=== PATIENT | female | born 1990 | race Caucasian/White ===

== ENCOUNTER 2017-01-22 20:25 | Inpatient (IN) | payer BC ==
[~2017-01-22] VITALS: Ht 160 cm; Wt 110.9 kg
--- NOTE | ~2017-01-22 | DS ---
PATIENT'S NAME: CURT EASTMAN [facility] AGE: 26 Y [address] ROOM: [address] [address] LOCATION: [facility] ADMIT DATE: 01/22/2017 Discharge Summary DISCHARGE DATE: 01/25/2017 FAMILY PHYSICIAN: NAHOMY JACINTO ATTENDING PHYSICIAN: Tawanna Chen FINAL DIAGNOSES: 1. Intrauterine at 38 weeks. 2. Severe preeclampsia. 3. Status post primary low transverse section. REASON FOR ADMISSION: This patient is a 26-year-old 1 female, who came here from [place], [place] with what was presumed to be gestational hypertension. HOSPITAL COURSE: The patient was admitted. She was noted to have severe preeclampsia with blood pressures in the 200s/130s and the decision was made for primary low transverse section. Please see her detailed operative report. She delivered a female infant. Apgars were 8 and 9. Postoperatively, the patient did well. Her postoperative hemoglobin was 9.8 from 12.3. She was ambulating well and urinating without difficulty. Her blood pressures were well controlled on Procardia, and she was discharged home on postoperative day #3. DISCHARGE MEDICATIONS: Please see her discharge medication list. DISCHARGE INSTRUCTIONS: The patient was given routine section instructions, and I will see her back in 2 weeks for an incision check. MD COSME GALVAN/yvrose /[id number] d: 02/02/17 0836 t: 02/05/17 0952, DISCHARGE SUMMARY
--- NOTE | ~2017-01-22 | HP ---
PATIENT'S NAME: CURT EASTMAN [facility] AGE: 26 Y [address] ROOM: [place] [address] LOCATION: GO ADMIT DATE: 01/22/2017 History & Physical DISCHARGE DATE: FAMILY PHYSICIAN: PHYSICIAN, NO ATTENDING PHYSICIAN: Tawanna Chen DATE OF SERVICE: CHIEF COMPLAINT: Preeclampsia. HISTORY OF PRESENT ILLNESS: This is a 26-year-old 1, para 0 female, at 38 weeks and 0 days' gestation by first-trimester ultrasound. She is a patient from [place], [place]. I was contacted today by Dr. Santos regarding her blood pressure. She apparently had elevated blood pressures last week with blood pressures in the 140s over 90s. They started her on atenolol. Today, she came to the office for nonstress test and blood pressures were 140s over 90s, but then she did have a couple of 160/100. CBC and CMS were normal at that time. A 24- hour urine last week was 10 mg. She has not had any headaches or changes in vision or right upper quadrant pain. She has had good movement. She has had occasional contractions. She has had no leakage of fluid and no vaginal bleeding. PAST MEDICAL HISTORY: No chronic medical problems. PAST SURGICAL HISTORY: Tonsils and wisdom teeth. OB HISTORY: She is 1, blood type B positive, antibody screen negative, RPR negative, hepatitis B serum antigen negative. Rubella immune. Group B strep positive. Penicillin allergy but no sensitivities were done. On ultrasound yesterday, estimated weight is 3138 g. Baby was cephalic. BRONSON was 28 cm. One-hour Glucola was 150. The patient states she did not do her 3-hour because she ate a good breakfast that morning, and they did not feel that she needs to do a 3-hour. MEDICATIONS: Atenolol. ALLERGIES: PENICILLIN AND SHRIMP. PATIENT'S NAME: CURT EASTMAN [facility] AGE: 26 Y [address] ROOM: [address] [address] LOCATION: GO ADMIT DATE: 01/22/2017 History & Physical DISCHARGE DATE: FAMILY PHYSICIAN: PHYSICIAN, NO ATTENDING PHYSICIAN: Tawanna Chen SOCIAL HISTORY: The patient is a smoker. She is . She does not use street drugs or alcohol. FAMILY HISTORY: Noncontributory. REVIEW OF SYSTEMS: As per HPI. All other systems are reviewed and negative. PHYSICAL EXAMINATION: VITAL SIGNS: Blood pressures 193/108, 202/130, 198/105; afebrile; pulse 88. GENERAL: She is alert and oriented. HEART: Regular rate and rhythm. LUNGS: Clear to auscultation. ABDOMEN: Gravid. Soft, nontender, and nondistended. EXTREMITIES: 2+ DTRs, 2+ edema. PELVIC: Cervix is fingertip, thick, and high. Unable to feel presenting part. Cephalic on ultrasound. IMPRESSION: 1. Intrauterine at 38 weeks. 2. Atypical preeclampsia with severe range of blood pressures. PLAN: Treat her blood pressures and do primary low transverse section. She is remote from delivery and in a dangerous range of blood pressures. The risks, benefits, and alternatives to the procedure were discussed with the patient. She understands risk to be, but not to be limited to bleeding, infection, damage to the bowel, bladder, ureter, and surrounding organs and desired to proceed. MD COSME GALVAN/yvrose /[id number] D: T: 651 HISTORY & PHYSICAL
--- NOTE | ~2017-01-22 | OR ---
PATIENT'S NAME: CURT EASTMAN [facility] AGE: 26 Y [address] ROOM: [place] [address] LOCATION: GOBS ADMIT DATE: 01/22/2017 OR/Procedure Report DISCHARGE DATE: 01/25/2017 FAMILY PHYSICIAN: PHYSICIAN, NO ATTENDING PHYSICIAN: Tawanna Chen SURGEON: Tawanna Chen MD PHYSICIAN OBSTETRICIAN: DATE OF PROCEDURE: 01/22/2017 PREOPERATIVE DIAGNOSES: 1. Intrauterine at 38 weeks. 2. Severe preeclampsia with severe range pressures, remote from delivery. POSTOPERATIVE DIAGNOSES: 1. Intrauterine at 38 weeks. 2. Severe preeclampsia with severe range pressures, remote from delivery. PROCEDURE: Primary low transverse section. PHYSICIAN OBSTETRICIAN SURGEON: Felicita Rea MD. Dr. Rea was necessary for adequate visualization of tissues and delivery of the fetus. ANESTHESIA: GETA. FINDINGS: Female infant, score 8 and 9, weight is pending. Normal uterus, tubes, and ovaries. ESTIMATED BLOOD LOSS: 500 mL. DRAINS: None. SPECIMENS: Placenta. COMPLICATIONS: None. INDICATIONS: This patient is a 26-year-old 1 female who came from [place], [place], after she had seen Dr. Santos today due to just what was presumed to be gestational hypertension. I was told over the phone that her blood pressures were about 140s/90s. She was asymptomatic and her labs were normal. When she arrived here, her blood pressures were in the 190s/100s and she had even some blood pressures up in the 200s/130s and the decision was made for urgent delivery. The risks, benefits, and alternatives to the procedure were discussed with the patient. She understands the risk to be, but not to be limited to, bleeding, infection, damage to the bowel, bladder, ureter, and surrounding organs and desired to proceed. [facility] 26 Y [address] ROOM: [place] [address] LOCATION: [facility] ADMIT DATE: 01/22/2017 OR/Procedure Report DISCHARGE DATE: 01/25/2017 FAMILY PHYSICIAN: PHYSICIAN, NO ATTENDING PHYSICIAN: Tawanna Chen DESCRIPTION OF PROCEDURE: The patient was taken to the operating room, anesthesia was found to be adequate. She was prepped and draped in dorsal supine position with a leftward tilt. A Pfannenstiel skin incision was made and carried down through to the fascia. The fascia was incised across the midline and the fascial incision was extended. The rectus muscles were . The peritoneum was entered. The bladder blade was inserted. The uterus was incised in a low transverse fashion with the scalpel. The uterine incision was extended with vertical traction. Surgeon's hand was inserted into the uterus. head delivered. The rest of the fetus delivered. The nose and mouth were bulb suctioned. Cord was clamped and cut. The was handed to awaiting team. Cord blood was drawn. The placenta delivered with manual traction. Uterus was exteriorized and cleared of clots and debris. It was repaired with 0 Vicryl in running lock fashion. Uterus was returned to the abdomen, and the gutters were cleared of clots and debris. The uterus was again noted to be hemostatic. The fascia was repaired with 0 Vicryl in a running fashion. Subcutaneous adipose tissue was reapproximated with 2-0 Vicryl suture. The skin was closed with 4-0 Vicryl suture. COMPLICATIONS: None. CONDITION: Mom stable in room. to nursery. MD COSME GALVAN/yvrose /[id number] d: 01/26/17 0710 t: 02/02/17 0732, OPERATIVE SUMMARY
[2017-01-22 21:05] LABS: BASOPHIL % 0.2 %; EOSINOPHIL # 0.1 K/uL (0.0-0.5); EOSINOPHIL % 0.9 %; HEMATOCRIT 38.7 % (33.0-46.0); HEMOGLOBIN 12.3 g/dL (11.0-15.0); IMMATURE GRANULOCYTE # 0.1 K/uL (0.0-0.3); IMMATURE GRANULOCYTE % 0.8 %; LYMPHOCYTE # 2.6 K/uL (0.8-4.0); LYMPHOCYTE % 20.2 %; MCH 26.2 pg (27.0-34.0); MCHC 31.8 gm/dL (32.0-36.5); MCV 82.3 fl (83.0-98.0); MONOCYTE # 0.7 K/uL (0.0-1.0); MONOCYTE % 5.3 %; MPV 13.6 fl (9.4-12.4); NEUTROPHIL # (ANC) 9.5 K/uL (1.8-7.8); NEUTROPHIL % 72.6 %; NRBC % 0 /100WBC (0-0.00); PLATELET COUNT 195 K/uL (150-450); RDW-CV 14.5 % (11.9-14.6); WBC 13.1 K/uL (4.0-11.0)
[2017-01-22 21:22] LABS: ALBUMIN 2.6 gm/dL (3.5-5.0); ALK PHOS 207 IU/L (33-138); ALT 13 IU/L (12-78); ANION GAP 13.8 (10.0-19.0); AST 15 IU/L (10-40); BLOOD UREA NITROGEN 14 mg/dL (6-24); CALCIUM 8.4 mg/dL (8.5-10.5); CHLORIDE 108 mMol/L (96-110); CO2 22 mMol/L (22-32); CREATININE 0.8 mg/dL (0.5-1.1); ESTIMATED GFR (MDRD EQUATION) > 60; POTASSIUM 3.8 mMol/L (3.7-5.1); SODIUM 140 mMol/L (135-145); TOTAL BILIRUBIN 0.2 mg/dL (0.0-1.5); TOTAL PROTEIN 7.4 g/dL (6.0-8.4)
[2017-01-22 21:48] LABS: BARBITURATE NEGATIVE (NEGATIVE); COCAINE NEGATIVE (NEGATIVE); OPIATES NEGATIVE (NEGATIVE)
[2017-01-22 21:49] LABS: AMPHETAMINE NEGATIVE (NEGATIVE)
[2017-01-22 22:05] LABS: BICARBONATE 24.4 mmol/L (18.0-23.0); PCO2 54 mmHg (35-45); PO2 16 mmHg (80-90)
[2017-01-23] MEDS ORDERED: TENORMIN25 MG PO (02:21)
[2017-01-23 05:03] LABS: BASOPHIL % 0.2 %; EOSINOPHIL # 0.1 K/uL (0.0-0.5); EOSINOPHIL % 0.4 %; HEMOGLOBIN 9.8 g/dL (11.0-15.0); IMMATURE GRANULOCYTE # 0.1 K/uL (0.0-0.3); IMMATURE GRANULOCYTE % 0.7 %; LYMPHOCYTE # 3.2 K/uL (0.8-4.0); LYMPHOCYTE % 17.9 %; MCH 26.8 pg (27.0-34.0); MCV 81.6 fl (83.0-98.0); MONOCYTE % 5.4 %; NEUTROPHIL # (ANC) 13.5 K/uL (1.8-7.8); NEUTROPHIL % 75.4 %; NRBC % 0 /100WBC (0-0.00); RBC 3.65 M/uL (3.50-5.00); RDW-CV 14.6 % (11.9-14.6)
[2017-01-23 05:07] LABS: HEMATOCRIT 29.8 % (33.0-46.0); MCHC 32.9 gm/dL (32.0-36.5); PLATELET COUNT 150 K/uL (150-450); WBC 17.9 K/uL (4.0-11.0)
--- NOTE | 2017-01-23 05:31 | NUR ---
Last VS: T:98.4 P:69 R: 14 BP: 130/63 Pain ratin. Last pain med: Percocet Medicated at: perc @ 0230, toradol @ 0430 Effective: Partial relief R Lung sounds: clear L Lung sounds: clear Fundus: firm, midline, 1 below Lochia: small, rubra Breasts: soft Nipples: intact Incision: low, transverse Incision appearance: Microfoam dressing CDI Incision closure: sutures and steristrips Bowel sounds: hypo x 4 quads Passing flatus: no Voiding well: fallon in place Significant event: c/o cough x 1 week, on Procardia XL, 3rd dose of toradol due at 1030, next percocet due @ 0630, Magnesium sulfate infusing at 2 gram/hr order for hydralazine available for elevated BPs. BPs 130-150s/60-90. Bedrest ordered. Neg urine drug screen. Smokes 1/2 pack/day
--- NOTE | 2017-01-23 17:33 | NUR ---
Last VS: T:97.6 P:64 R: 16 BP: 127/65 Pain ratin . Last pain med: Percocet Medicated at:1430 Effective: Partial relief R Lung sounds cl, L Lung sounds: cl Fundus:ff Lochia:small Breasts:soft Nipples:intact.graspable Incision: , Incision appearance: Incision closure: Bowel sounds: hypoactive Passing flatus:no Voiding well: Gandhi-clear yellow. Significant event: N ext percocet @ 1830. Bp's 120's/58/-140's-72. 1 hr outputs 100's-400's. D/c Iv mag @ 2144. Ice bag to dry/intact microfoam dressing.
--- NOTE | 2017-01-24 03:18 | NUR ---
Last VS: T:97.8 P:64 R: 14 BP: 136/76 Pain ratin. Last pain med: Motrin Medicated at: 2330 Effective: Partial relief R Lung sounds: clear L Lung sounds: clear Fundus: firm, midline Lochia: small, rubra Breasts: soft Nipples: intact Incision: low, transverse Incision appearance: edges approximated/open to air Incision closure: sutures Bowel sounds: hypoactive Passing flatus: no Voiding well: voids well on own Significant event: VSS, BP 120-130s/60-70s. Mag off at 2145. DTRs 2-3+, good urine output. Emesis at 2330-25 minutes after percocet given. Needs TDAP and Flu shot--in refrigerator. Needs showered and bed linens changed.
--- NOTE | 2017-01-24 18:00 | NUR ---
Last VS: T:98.1 P:75 R: 16 BP: 146/82 Pain ratin-5 Last pain med: Motrin Medicated at: 4710 Effective: Partial relief R Lung sounds:cl , L Lung sounds: cl Fundus:,ff Lochia: small Breasts: soft Nipples: graspable Incision:approx , Incision appearance: Incision closure: suture only Bowel sounds:hypoactive Passing flatus: yes Voiding well: yes. Significant event: Flu vaccine given. Needs tdap. Bp 130-140'd/60-80's up in halls. Given all purpose nipple ointment.
--- NOTE | 2017-01-25 04:33 | NUR ---
VSS. Fundus firm, even 1 down. Sutures intact. Passing flatus. Small flow. 1 percocet last at 0242. Breast feeding well. Planning on going home today.
[2017-01-25] MEDS ORDERED: APNO TOP (07:48)
[2017-01-25] MEDS ORDERED: PROCARDIA XL30 MG PO (07:51)
[2017-01-25] MEDS ORDERED: PRENATAL 1+1)(P1 TAB PO (07:51)
[2017-01-25] MEDS ORDERED: PERCOCET 5-3251 EACH PO (07:52)
[2017-01-25] MEDS ORDERED: MOTRIN800 MG PO (07:52)
== END 2017-01-25 15:40 | disposition disaster alternative care site (69) | DRG 766 ==
LOC: GOBS 20:25
PROVIDERS: ADMIT Obstetrics & Gynecology
PROC: 10D00Z1 Extraction of Products of Conception, Low, Open Approach (ICD-10-PCS; principal; 2017-01-22)
DX: O14.14 Severe pre-eclampsia complicating childbirth (principal); F17.210 Nicotine dependence, cigarettes, uncomplicated; O99.824 Streptococcus B carrier state complicating childbirth; O99.334 Smoking (tobacco) complicating childbirth; Z88.0 Allergy status to penicillin; Z3A.38 38 weeks gestation of pregnancy; Z37.0 Single live birth
CPT/HCPCS: G0008; J0610; J0690; J1885; J2270; J3475; J7120